=== PATIENT | female | born 1955 | race Asian ===

== ENCOUNTER 2017-10-05 10:26 | Inpatient (IN) | payer OTHER ==
[~2017-10-05] VITALS: Ht 157.5 cm; Wt 93.6 kg
[2017-10-05 11:13] LABS: PLATELET COUNT 337 x10^3mcL (130-400)
[2017-10-05 11:16] LABS: RED CELL DISTRIBUTION WIDTH 18.4 % (11.5-14.5)
[2017-10-05 11:19] LABS: UA SPECIFIC GRAVITY >=1.030 (1.005-1.035); microscopic required? YES; urine erythrocyte 2+ (NEGATIVE)
[2017-10-05 11:32] LABS: BAND NEUTROPHIL 3 % (0-10); MONOCYTE 3 % (0-7); SEGMENTED NEUTROPHILS 88 % (37-75); rbc morphology (normal/abnorm) NORMAL (NORMAL)
[2017-10-05 11:37] LABS: CARBON DIOXIDE 24.9 mmol/L (21-32); CHLORIDE SERUM 100 mmol/L (98-107); CREATININE SERUM 0.9 mg/dL (0.6-1.0); GFR1 > 60 mL/min; GLUCOSE SERUM 261 mg/dL (74-106); POTASSIUM SERUM 3.4 mmol/L (3.5-5.1); SODIUM SERUM 138 mmol/L (136-145)
[2017-10-05 11:49] LABS: ALBUMIN 3.6 g/dL (3.4-5.0); ALKALINE PHOSPHATASE 73 U/L (46-116); ALT/SGPT 87 U/L (14-59); AMYLASE 108 U/L (25-115); AST/SGOT 61 U/L (15-37); BILIRUBIN TOTAL 0.2 mg/dL (0.20-1.00); HDL CHOLESTEROL 58 mg/dL (40-60); LIPASE 115 IU/L (73-393); MAGNESIUM 1.7 mg/dL (1.8-2.4); T4(THYROXINE) 7.7 ug/dL (4.7-13.3)
[2017-10-05] MEDS ORDERED: ATORVASTATIN CA40 M1 (11:54)
[2017-10-05 11:55] LABS: CHOLESTEROL 132 mg/dL (<200); TOTAL PROTEIN, SERUM 8.4 g/dL (6.4-8.2)
[2017-10-05] MEDS ORDERED: JANUVIA100 M1 PO (11:55)
[2017-10-05] MEDS ORDERED: ASPIR 8181 MG PO (11:55)
[2017-10-05] MEDS ORDERED: GABAPENTIN100 M2 (11:56)
[2017-10-05] MEDS ORDERED: MIRTAZAPINE15 M2 (11:56)
[2017-10-05] MEDS ORDERED: COZAAR25 M1 (11:56)
[2017-10-05 13:39] LABS: CHOLESTEROL/HDL RATIO 2.5; PHOSPHOROUS 2.7 mg/dL (2.5-4.9)
[2017-10-05 13:45] LABS: T3 TOTAL 1.11 ng/mL
[2017-10-05 13:46] LABS: AMPHETAMINE QUAL UR NONE DETECTED (NEG <=1000)
[2017-10-05 13:47] LABS: FREE T4 1.03 ng/dL (0.76-1.46); FREE THYROXINE INDEX 2.8 ug/dL (1.4-4.5); T4(THYROXINE) 8.9 ug/dL (4.7-13.3)
[2017-10-05 14:26] VITALS: BP 151/76
[2017-10-05 14:31] VITALS: Ht 157.5 cm; Wt 93.6 kg
[2017-10-05 22:09] VITALS: BP 140/67
[2017-10-06 05:34] VITALS: BP 141/65
[2017-10-06 06:52] LABS: CALCIUM 8.5 mg/dL (8.5-10.1); CARBON DIOXIDE 23.6 mmol/L (21-32); CHLORIDE SERUM 103 mmol/L (98-107); CREATININE SERUM 0.7 mg/dL (0.6-1.0); GFR1 > 60 mL/min; GLUCOSE SERUM 141 mg/dL (74-106); MAGNESIUM 1.9 mg/dL (1.8-2.4); PHOSPHOROUS 2.7 mg/dL (2.5-4.9); POTASSIUM SERUM 3.6 mmol/L (3.5-5.1); SODIUM SERUM 137 mmol/L (136-145)
[2017-10-06 06:53] LABS: BASOPHIL % 0.4 % (0-2); PLATELET COUNT 250 x10^3mcL (130-400); RED CELL DISTRIBUTION WIDTH 19.4 % (11.5-14.5)
[2017-10-06 09:40] VITALS: BP 144/69
[2017-10-06 13:17] VITALS: BP 152/69
[2017-10-06 17:35] VITALS: BP 149/70
[2017-10-06 20:28] VITALS: BP 154/69
[2017-10-07 05:01] VITALS: BP 132/68
[2017-10-07 06:46] LABS: BASOPHIL % 0.5 % (0-2); PLATELET COUNT 259 x10^3mcL (130-400)
[2017-10-07 06:53] LABS: rbc morphology (normal/abnorm) ABNORMAL (NORMAL)
[2017-10-07 07:21] LABS: CALCIUM 8.7 mg/dL (8.5-10.1); CARBON DIOXIDE 25.5 mmol/L (21-32); CHLORIDE SERUM 107 mmol/L (98-107); CREATININE SERUM 0.8 mg/dL (0.6-1.0); GFR1 > 60 mL/min; GLUCOSE SERUM 142 mg/dL (74-106); MAGNESIUM 2.1 mg/dL (1.8-2.4); POTASSIUM SERUM 3.6 mmol/L (3.5-5.1); SODIUM SERUM 142 mmol/L (136-145)
[2017-10-07 09:52] VITALS: BP 171/78
[2017-10-07 14:54] VITALS: BP 180/84
[2017-10-07 17:57] VITALS: BP 173/75
[2017-10-07 21:25] VITALS: BP 134/51
[2017-10-08 05:42] VITALS: BP 134/47
[2017-10-08 06:59] LABS: BASOPHIL % 0.4 % (0-2); PLATELET COUNT 253 x10^3mcL (130-400)
[2017-10-08 07:09] LABS: RED CELL DISTRIBUTION WIDTH 19.9 % (11.5-14.5)
[2017-10-08 07:14] LABS: CALCIUM 8.5 mg/dL (8.5-10.1); CARBON DIOXIDE 24.5 mmol/L (21-32); CHLORIDE SERUM 106 mmol/L (98-107); CREATININE SERUM 0.8 mg/dL (0.6-1.0); GFR1 > 60 mL/min; GLUCOSE SERUM 155 mg/dL (74-106); PHOSPHOROUS 2.4 mg/dL (2.5-4.9); POTASSIUM SERUM 3.5 mmol/L (3.5-5.1); SODIUM SERUM 140 mmol/L (136-145)
[2017-10-08 09:20] VITALS: BP 152/66
[2017-10-08] MEDS ORDERED: LEVAQUIN750 MG PO ×2 (12:14→14:32)
[2017-10-08] MEDS ORDERED: LAC PO ×2 (12:15→14:32)
[2017-10-08] MEDS ORDERED: MECLIZINE HYDRO25 M1 PO ×2 (12:16→14:32)
[2017-10-08 13:24] VITALS: BP 152/66
[2017-10-08 14:28] VITALS: BP 187/72
[2017-10-08] MEDS ORDERED: ASPIR 8181 MG PO (14:32)
== END 2017-10-08 15:15 | disposition home or self-care (01) | DRG 149 ==
LOC: ED 10:26 → DU 12:32
PROVIDERS: Emergency Medicine; Family Medicine
DX: H81.11 Benign paroxysmal vertigo, right ear (principal); N17.0 Acute kidney failure with tubular necrosis; Z68.41 Body mass index [BMI] 40.0-44.9, adult; R80.9 Proteinuria, unspecified; E86.0 Dehydration; I16.0 Hypertensive urgency; E11.65 Type 2 diabetes mellitus with hyperglycemia; E11.51 Type 2 diabetes mellitus with diabetic peripheral angiopathy without gangrene; E04.1 Nontoxic single thyroid nodule; E83.42 Hypomagnesemia; E83.39 Other disorders of phosphorus metabolism; K76.0 Fatty (change of) liver, not elsewhere classified; R31.9 Hematuria, unspecified; I08.1 Rheumatic disorders of both mitral and tricuspid valves; F41.9 Anxiety disorder, unspecified; Z79.82 Long term (current) use of aspirin
CPT/HCPCS: 82962; 83880; 84439; 97110-GP; 97116-GP; 97530-GP; A9577; J0696; J1815; J2405; J2550; J7030; J8597; Q0092; Q9967